=== PATIENT | female | born 1975 | race Caucasian/White ===

== ENCOUNTER → 2019-01-10 | Outpatient (CLI) | payer OTHER ==
[~2019-01-10] MED LIST: BUPIVACAINE 0.25% 30 ML SDV ONE; DEPO METHYLPREDNISOLONE 40 MG/ML SDV ONE; LIDOCAINE 1% 300 MG/30 ML SDV ONE
== END ==
LOC: FIMAGING 13:34
PROVIDERS: ATTEND Orthopaedic Surgery Hand Surgery
PROC: 3E0U4GC Introduction of Other Therapeutic Substance into Joints, Percutaneous Endoscopic Approach (ICD-10-PCS; principal; 2019-01-10)
DX: M75.21 Bicipital tendinitis, right shoulder (principal)
CPT/HCPCS: J1030